=== PATIENT | female | born 1990 | race Caucasian/White ===

== ENCOUNTER 2021-04-27 06:47 | Emergency (ER) | payer BC, OTHER ==
[2021-04-27 07:07] VITALS: BP 139/87; PULSE 93
[2021-04-27] MEDS ORDERED: Sodium Chloride 0.9% 10 ML Syringe FLUSH PRN (07:17)
[2021-04-27] MEDS ORDERED: fentaNYL 100 MCG/2 ML SDV IVPUSH ONE (07:19)
[2021-04-27] MEDS ORDERED: Ondansetron 4 MG/2 ML SDV IVPUSH ONE (07:19)
--- NOTE | 2021-04-27 07:21 | EDM.PDOC ---
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 She states her abdomen feels very distended - Related Data Allergies Allergy/AdvReac Type Severity Reaction Status Date / Time ketorolac tromethamine Allergy Rash Verified 04/27/21 07:02 [From Toradol] morphine AdvReac Headache Verified 04/27/21 07:02 Home Meds: Home Meds Hydrocodone/Acetaminophen [HYDROcodone-Acetaminophen 5-217 MG/10 ML] 10 ml PO TID PRN #100 solution 04/27/21 [Rx] Omeprazole 20 mg PO BID 04/27/21 [History] Past Medical History HEENT History: Reports: Impaired Vision Gastrointestinal History: Reports: Irritable Bowel Syndrome [employer] History: Reports: Endometriosis, Polycystic Ovaries Endocrine/Metabolic History: Reports: Obesity/BMI 30+ - Past Surgical History Head Surgeries/Procedures: Reports: None HEENT Surgical History: Reports: Tonsillectomy GI Surgical History: Reports: Cholecystectomy, Other (See Below) Other GI Surgeries/Procedures: balloon placed january 2021 Female Surgical History: Reports: Cystectomy, D&C Endocrine Surgical History: Reports: None Dermatological Surgical History: Reports: None Social & Family History - Caffeine Use Caffeine Use: Reports: None ED ROS GENERAL - Review of Systems Review Of Systems: See Below Constitutional: Reports: No Symptoms Respiratory: Reports: No Symptoms Cardiovascular: Reports: No Symptoms GI/Abdominal: Reports: Abdominal Pain, Flatus, Nausea, Vomiting. Denies: Constipation, Diarrhea : Reports: No Symptoms ED EXAM, GI/ABD - Physical Exam Exam: See Below Exam Limited By: No Limitations General Appearance: Alert, WD/WN, No Apparent Distress Respiratory/Chest: No Respiratory Distress, Lungs Clear, Normal Breath Sounds, No Accessory Muscle Use, Chest Non-Tender Cardiovascular: Regular Rate, Rhythm, No Murmur GI/Abdominal Exam: Normal Bowel Sounds, Soft, Distended, Tender (Left upper quadrant). No: Guarding, Rigid, Rebound Course - Vital Signs Last Recorded V/S: Last Vital Signs Temp 97.7 F 04/27/21 07:07 Pulse 93 04/27/21 07:07 Resp 17 04/27/21 07:07 BP 139/87 04/27/21 07:07 Pulse Ox 98 04/27/21 07:07 - Orders/Labs/Meds Orders: Active Orders 24 hr Category Date Time Status Peripheral IV Care [RC] . DIRECTED Care 04/27/21 07:17 Active Lactated Ringers [Ringers, Lactated] 1,000 ml Med 04/27/21 07:30 Active IV ASDIRECTED Sodium Chloride 0.9% [Normal Saline] 89 ml Med 04/27/21 08:00 Active IV ASDIRECTED Sodium Chloride 0.9% [Saline Flush] Med 04/27/21 07:17 Active 10 ml FLUSH ASDIRECTED PRN Peripheral IV Insertion Adult [OM.PC] Urgent Oth 04/27/21 07:17 Ordered Medication Orders Lactated Ringer's (Ringers, Lactated) 1,000 mls @ 999 mls/hr IV ASDIRECTED KISHA Last Admin: 04/27/21 07:42 Dose: 999 mls/hr Documented by: BRIONNA Sodium Chloride (Normal Saline) 89 mls @ 3.5 mls/sec IV ASDIRECTED KISHA Last Admin: 04/27/21 08:00 Dose: 3.5 mls/sec Documented by: MELISSA Sodium Chloride (Sodium Chloride 0.9% 10 Ml Syringe) 10 ml FLUSH ASDIRECTED PRN PRN Reason: Keep Vein Open Last Admin: 04/27/21 07:42 Dose: 10 ml Documented by: BRIONNA Labs: Laboratory Tests 04/27/21 04/27/21 04/27/21 Range/Units 07:30 07:30 07:30 WBC 10.2 (4.5-11.0) K/uL RBC 4.80 (3.30-5.50) M/uL Hgb 14.6 (12.0-15.0) g/dL Hct 43.5 (36.0-48.0) % MCV 91 (80-98) fL MCH 30 (27-31) pg MCHC 34 (32-36) % Plt Count 289 (150-400) K/uL Neut % (Auto) 69.5 H (36-66) % Lymph % (Auto) 20.4 L (24-44) % [place] % (Auto) 6.1 H (2-6) % Eos % (Auto) 3.7 (2-4) % Baso % (Auto) 0.3 (0-1) % Sodium 139 L (140-148) mmol/L Potassium 3.8 (3.6-5.2) mmol/L Chloride 101 (100-108) mmol/L Carbon Dioxide 26 (21-32) mmol/L Anion Gap 15.8 H (5.0-14.0) mmol/L BUN 21 H (7-18) mg/dL Creatinine 0.9 (0.6-1.0) mg/dL Est Cr Clr Drug Dosing 97.94 mL/min Estimated GFR (MDRD) > 60 (>60) Glucose 96 (74-106) mg/dL Lactic Acid 0.8 (0.4-2.0) mmol/L Calcium 9.6 (8.5-10.1) mg/dL Total Bilirubin 0.6 (0.2-1.0) mg/dL AST 15 (15-37) U/L ALT 14 (12-78) U/L Alkaline Phosphatase 86 (46-116) U/L Troponin I < 0.017 (0.000-0.056) ng/mL Total Protein 7.7 (6.4-8.2) g/dL Albumin 4.0 (3.4-5.0) g/dL Globulin 3.7 H (2.3-3.5) g/dL Albumin/Globulin Ratio 1.1 L (1.2-2.2) Lipase 84 (73-393) U/L Urine Color (YELLOW) Urine Appearance (CLEAR) Urine pH (5.0-8.0) Ur Specific [place] (1.008-1.030) Urine Protein (NEGATIVE) mg/dL Urine Glucose (UA) (NEGATIVE) mg/dL Urine Ketones (NEGATIVE) mg/dL Urine Occult Blood (NEGATIVE) Urine Nitrite (NEGATIVE) Urine Bilirubin (NEGATIVE) Urine Urobilinogen (0.2-1.0) EU/dL Ur Leukocyte Esterase (NEGATIVE) Urine RBC (0-5) Urine WBC (0-5) Ur Epithelial Cells Amorphous Sediment Urine Bacteria Urine Mucus 04/27/21 Range/Units 07:33 WBC (4.5-11.0) K/uL RBC (3.30-5.50) M/uL Hgb (12.0-15.0) g/dL Hct (36.0-48.0) % MCV (80-98) fL MCH (27-31) pg MCHC (32-36) % Plt Count (150-400) K/uL Neut % (Auto) (36-66) % Lymph % (Auto) (24-44) % [place] % (Auto) (2-6) % Eos % (Auto) (2-4) % Baso % (Auto) (0-1) % Sodium (140-148) mmol/L Potassium (3.6-5.2) mmol/L Chloride (100-108) mmol/L Carbon Dioxide (21-32) mmol/L Anion Gap (5.0-14.0) mmol/L BUN (7-18) mg/dL Creatinine (0.6-1.0) mg/dL Est Cr Clr Drug Dosing mL/min Estimated GFR (MDRD) (>60) Glucose (74-106) mg/dL Lactic Acid (0.4-2.0) mmol/L Calcium (8.5-10.1) mg/dL Total Bilirubin (0.2-1.0) mg/dL AST (15-37) U/L ALT (12-78) U/L Alkaline Phosphatase (46-116) U/L Troponin I (0.000-0.056) ng/mL Total Protein (6.4-8.2) g/dL Albumin (3.4-5.0) g/dL Globulin (2.3-3.5) g/dL Albumin/Globulin Ratio (1.2-2.2) Lipase (73-393) U/L Urine Color Yellow (YELLOW) Urine Appearance Slightly cloudy A (CLEAR) Urine pH 6.0 (5.0-8.0) Ur Specific [place] >= 1.030 (1.008-1.030) Urine Protein Negative (NEGATIVE) mg/dL Urine Glucose (UA) Negative (NEGATIVE) mg/dL Urine Ketones Trace H (NEGATIVE) mg/dL Urine Occult Blood Negative (NEGATIVE) Urine Nitrite Negative (NEGATIVE) Urine Bilirubin Negative (NEGATIVE) Urine Urobilinogen 1.0 (0.2-1.0) EU/dL Ur Leukocyte Esterase Negative (NEGATIVE) Urine RBC Not seen (0-5) Urine WBC 0-5 (0-5) Ur Epithelial Cells Many Amorphous Sediment Moderate Urine Bacteria Few Urine Mucus Few Meds: Medications Generic Name Dose Route Start Last Admin Trade Name Nikolai PRN Reason Stop Dose Admin Lactated Ringer's 1,000 mls @ 999 mls/hr 04/27/21 07:30 04/27/21 07:42 Ringers, Lactated IV 999 mls/hr ASDIRECTED KISHA Administration Sodium Chloride 89 mls @ 3.5 mls/sec 04/27/21 08:00 04/27/21 08:00 Normal Saline IV 3.5 mls/sec ASDIRECTED KISHA Administration Sodium Chloride 10 ml 04/27/21 07:17 04/27/21 07:42 Sodium Chloride 0.9% 10 Ml Syringe FLUSH 10 ml ASDIRECTED PRN Administration Keep Vein Open Discontinued Medications Generic Name Dose Route Start Last Admin Trade Name Nikolai PRN Reason Stop Dose Admin Fentanyl 50 mcg 04/27/21 07:19 04/27/21 07:35 Fentanyl 100 Mcg/2 Ml Sdv IVPUSH 04/27/21 07:20 50 mcg ONETIME ONE Administration Iopamidol 150 ml 04/27/21 07:48 04/27/21 07:59 Iopamidol 612 Mg/Ml 500 Ml Multipack Bottle IV 04/27/21 07:49 150 ml ONETIME ONE Administration Ondansetron HCl 4 mg 04/27/21 07:19 04/27/21 07:35 Ondansetron 4 Mg/2 Ml Sdv IVPUSH 04/27/21 07:20 4 mg ONETIME ONE Administration Sodium Chloride 10 ml 04/27/21 07:48 04/27/21 08:00 Sodium Chloride 0.9% 10 Ml Syringe FLUSH 04/27/21 07:49 10 ml ONETIME ONE Administration Departure - Departure Time of Disposition: 09:12 Disposition: Home, Self-Care 01 Condition: Fair Clinical Impression: Abdominal pain, epigastric - Discharge Information Prescriptions: Hydrocodone/Acetaminophen [HYDROcodone-Acetaminophen 5-217 MG/10 ML] 10 ml PO TID PRN #100 solution PRN Reason: Pain Instructions: Abdominal Pain, Adult, [id number] Referrals: Brock Do MD [Primary Care Provider] - Forms: ED Department Discharge Additional Instructions: Recommend going to clear liquids, lie on your left side to see if some of these food products will pass by the balloon, use the hydrocodone 10 mL up to 3 times a day as needed this medication has been faxed to [facility] in [place] please contact her gastric bypass surgeon tomorrow morning for follow-up Sepsis Event Note (ED) - Evaluation Sepsis Screening Result: No Definite Risk - Focused Exam Vital Signs: Vital Signs Temp Pulse Resp BP Pulse Ox 04/27/21 07:07 97.7 F 93 17 139/87 98 04/27/21 07:06 97.7 F 93 17 139/87 98 - My Orders Last 24 Hours: My Active Orders 04/27/21 07:17 Peripheral IV Care [RC] . DIRECTED Sodium Chloride 0.9% [Saline Flush] 10 ml FLUSH ASDIRECTED PRN Peripheral IV Insertion Adult [OM.PC] Urgent 04/27/21 07:30 Lactated Ringers [Ringers, Lactated] 1,000 ml IV ASDIRECTED 04/27/21 08:00 Sodium Chloride 0.9% [Normal Saline] 89 ml IV ASDIRECTED - Assessment/Plan Last 24 Hours: My Active Orders 04/27/21 07:17 Peripheral IV Care [RC] . DIRECTED Sodium Chloride 0.9% [Saline Flush] 10 ml FLUSH ASDIRECTED PRN Peripheral IV Insertion Adult [OM.PC] Urgent 04/27/21 07:30 Lactated Ringers [Ringers, Lactated] 1,000 ml IV ASDIRECTED 04/27/21 08:00 Sodium Chloride 0.9% [Normal Saline] 89 ml IV ASDIRECTED Plan: Assessment Acuity = acute Site and laterality = abdominal pain complicated by patient with known history of balloon bariatric procedure Etiology = unknown possibly balloon dysfunction Manifestations = none Location of injury = Home Lab values = CBC, CMP, lipase, troponin lactic acid all within normal limits urinalysis unremarkable CT scan does show 11 cm balloon however there is a large amount of food products above the balloon Plan Called discussed case Dr. Burton at 9 AM recommended laying on her left side clear liquids contact her gastric bypass surgeon tomorrow This note was dictated using Mango voice recognition software please call with any questions on syntax or grammar.
[2021-04-27] MEDS ORDERED: Lactated Ringers 1,000 ML IV SCH (07:30)
[2021-04-27] MEDS ORDERED: Sodium Chloride 0.9% 10 ML Syringe FLUSH ONE (07:48)
[2021-04-27] MEDS ORDERED: Iopamidol 612 MG/ML 500 ML Multipack Bottle IV ONE (07:48)
--- NOTE | 2021-04-27 08:29 | CRLCT ---
For Patients: As a result of the Century Cures Act, medical imaging exams and procedure reports are released immediately into your electronic medical record. You may view this report before your referring provider. If you have questions, please contact your health care provider. INDICATION: Three days of right upper quadrant pain. TECHNIQUE: CT abdomen and pelvis acquired with 150 mL Isovue-300 IV contrast. COMPARISON: None FINDINGS: Lower chest: Unremarkable lung parenchyma. Small sliding hiatus hernia. Liver: Unremarkable. Spleen: Unremarkable. Pancreas: Unremarkable. Gallbladder and bile ducts: Cholecystectomy. Minor benign associated intrahepatic ductal dilatation. Kidneys: Unremarkable. Adrenal glands: Unremarkable. GI tract: Intragastric balloon bariatric implant. Fluid and food contents in the cardia above the implant. Stomach is not particularly dilated proximally and is decompressed distally. Greatest transverse diameter of the implant 11 cm. Appendix is normal. No abnormality appreciated in large or small bowel. Vascular structures: Negative. No sign of aneurysm. Lymph nodes: Unremarkable. Miscellaneous: Unremarkable. No free air or significant free fluid. Pelvic Organs: Unremarkable. Bones: Unremarkable for age. IMPRESSION: Intragastric balloon bariatric implant. Small sliding hiatus hernia. Chronic cholecystectomy appearance. Please note that all CT scans at this facility use dose modulation, iterative reconstruction, and/or weight-based dosing when appropriate to reduce radiation dose to as low as reasonably achievable. Dictated by Martínez Lim MD @ 04/27/2021 8:28:[address] Martínez Lim @ Apr 27 2021 8:28AM
== END 2021-04-27 09:24 | disposition home or self-care (01) ==
LOC: JP.ED 06:47
DX: R10.13 Epigastric pain (principal); R10.12 Left upper quadrant pain; E66.9 Obesity, unspecified; Z68.30 Body mass index [BMI] 30.0-30.9, adult; Z88.5 Allergy status to narcotic agent; Z88.6 Allergy status to analgesic agent
CPT/HCPCS: 36415; 74177; 80053; 81001; 83605; 83690; 84484; 85025; 96374; 96375; 99284; J2405; J3010; J7120; Q9967

== ENCOUNTER 2024-06-03 20:05 | Emergency (ER) | payer OTHER | END 2024-06-03 21:01 | disposition left against medical advice (07) | LOC: JP.ED 20:05 | DX: Z53.21 Procedure and treatment not carried out due to patient leaving prior to being seen by health care provider (principal) ==

== ENCOUNTER 2024-06-03 21:52 | Emergency (ER) | payer OTHER ==
[2024-06-03 22:01] VITALS: BP 144/83; PULSE 80
[2024-06-03] MEDS: droPERidol 5 MG/2 ML SDV IVPUSH ONE (22:29)
[2024-06-03] MEDS: Sodium Chloride 0.9% 1,000 ML IV SCH (22:29)
[2024-06-03 22:33] LABS: BASOPHILS ABSOLUTE AUTO 0.04 K/uL (0.00-0.10); BASOPHILS PERCENT AUTO 0.5 % (0.1-1.3); EOSINOPHILS ABSOLUTE AUTO 0.15 K/uL (0.00-0.40); EOSINOPHILS PERCENT AUTO 1.7 % (0.0-5.4); HEMOGLOBIN 15.1 g/dL (11.2-15.5); IMMATURE GRAN PERCENT AUTO 0.2 % (0.0-0.7); LYMPHOCYTES ABSOLUTE AUTO 2.95 K/uL (0.8-3.3); LYMPHOCYTES PERCENT AUTO 33.3 % (11.4-47.7); MEAN CORPUSCULAR HEMOGLOBIN 32.3 pg (31.6-35.5); MEAN CORPUSCULAR VOLUME 89.7 fL (81.4-99.0); MONOCYTES PERCENT AUTO 5.6 % (3.3-12.6); NEUTROPHILS ABSOLUTE AUTO 5.21 K/uL (1.0-7.6); NEUTROPHILS PERCENT AUTO 58.7 % (40.0-78.1); PLATELET COUNT,PLT 273 K/uL (130-375); RED BLOOD CELL COUNT 4.68 M/uL (3.77-5.24); WHITE BLOOD CELL COUNT,WBC 8.9 K/uL (3.2-11.0)
[2024-06-03 22:34] LABS: IMMATURE GRAN ABSOLUTE AUTO 0.02 K/uL (0.00-0.23)
[2024-06-03 23:05] LABS: A/G RATIO 1.3 (1.2-2.2); ALANINE AMINOTRANSFERASE,ALT 15 U/L (12-78); ALBUMIN 4.4 g/dL (3.4-5.0); ALKALINE PHOSPHATASE 73 U/L (46-116); ANION GAP 8.7 mmol/L (5.0-14.0); ASPARTATE AMNIOTRANSFERASE,AST 18 U/L (15-37); BILIRUBIN TOTAL 0.4 mg/dL (0.2-1.0); BLOOD UREA NITROGEN,BUN 19 mg/dL (7-18); CALCIUM 9.9 mg/dL (8.5-10.1); CARBON DIOXIDE,CO2 29 mmol/L (21-32); CHLORIDE,CL 105 mmol/L (100-108); EST CRCL DRUG DOSING (CG) 82.84 mL/min; ESTIMATED GFR 76 mL/min (>60); GLUCOSE RANDOM 101 mg/dL (74-106); POTASSIUM,K 3.7 mmol/L (3.6-5.2); PROTEIN TOTAL,TP 7.9 g/dL (6.4-8.2); SODIUM,NA 143 mmol/L (140-148)
[2024-06-03] MEDS: Sodium Chloride 0.9% 100 ML IV ONE (23:32)
[2024-06-03] MEDS: Iopamidol 612 MG/ML 100 ML Bottle IV ONE (23:32)
[2024-06-03] MEDS: Sodium Chloride 0.9% 10 ML Syringe FLUSH ONE (23:32)
== END 2024-06-04 00:56 | disposition home or self-care (01) ==
LOC: JP.ED 21:52
DX: R10.30 Lower abdominal pain, unspecified (principal); E66.9 Obesity, unspecified; F17.210 Nicotine dependence, cigarettes, uncomplicated; Z86.16 Personal history of COVID-19; Z79.899 Other long term (current) drug therapy; Z88.5 Allergy status to narcotic agent; Z88.8 Allergy status to other drugs, medicaments and biological substances; H53.8 Other visual disturbances
CPT/HCPCS: 36415; 74177; 80053; 83605; 83690; 85025; 96361; 96374; 99284; J1790; J3490; J7030; Q9967